=== PATIENT | female | born 1970 | race Caucasian/White ===

== ENCOUNTER 2024-12-14 13:09 | Day surgery (SDC) | payer OTHER, SELFPAY ==
--- NOTE | 2024-12-14 | PATH_ITS ---
[facility] Accession Number: [id number] No. of containers..01 Tissue . 01 Material submitted: . gastrointestinal site - ANTRUM . 01 Clinical history: . ABNORMALITY PT HX OF FAMILY STOMACH CANCER . 01 Diagnosis: GASTRIC ANTRUM, BIOPSY: Gastric antral and body mucosa with mild features of reactive gastropathy. Negative for Helicobacter organisms by immunohistochemistry. Negative for intestinal metaplasia. Negative for dysplasia or malignancy. [facility] 12/25/2024 1533 Local . 01 Electronically signed: . Reza Patton MD, PhD, Pathologist NPI- [id number] . 01 Gross description: . Received in formalin with two identifiers and biopsy stomach antrum, are six soft perez tissue fragments ranging from 0.2 to 0.4 cm in greatest dimension. Entirely submitted in cassette A1. (AER:[id number]) /DORIS 12/22/2024 0121 Local . 01 Microscopic: . A. An immunohistochemical stain was performed to evaluate for Helicobacter organisms and is negative. The control stain showed appropriate reactivity. . * This test was developed and the performance characteristics were validated by [facility]. It has not been cleared or approved by the [place]. Food and Drug Administration. . 01 Pathologist provided ICD-10: K29.60 . 01 CPT . 903842, R94205 Specimen Comment: A courtesy copy of this report has been sent to [phone] Performed at: [address] [address], [place], [place] [id number] MD Aydin Dick MD Phone: [phone]
--- NOTE | 2024-12-14 12:32 | P.HP_ITS ---
History of Present Illness History of Present Illness Date Patient Seen: 12/14/24 Chief complaint: EGD & Colonoscopy w/poss bx's Meds Home Medications and Allergies Allergies Allergy/AdvReac Type Severity Reaction Status Date / Time No Known Drug Allergies Allergy Unverified 11/19/24 10:55 Assessment & Plan Assessment & Plan narrative: Personal history of stomach cancer in her father and her own personal history of his colon polyps. Risks, benefits, alternatives have been explained. Time-Based Coding :: [TOTAL MINUTES] spent with patient and on the chart (including review of chart, obtaining history, exam, reviewing outside data, placing orders, documenting exam and treatment plan, and counseling patient) on [DATE]. [employer] Document charge(s): No
--- NOTE | 2024-12-14 12:35 | PM.OP.EC ---
Operative Date/Time/Diagnoses Date of procedure: 12/14/24 Time of procedure: 15:44 Pre-op diagnosis: See indication and findings Post-op diagnosis: same Procedure & Clinicians Study performed: EGD and colonoscopy Same procedure(s) as scheduled: Yes Indications: Family history of stomach cancer in her father and personal history of colon polyps Surgeon: Maurilio Hua Anesthesia Type: Other Procedure Notes Procedure in detail: After informed consent was obtained the patient was placed in left lateral decubitus position. The video upper scope was placed into the oropharynx and with the patient's help swallowed in the esophagus. The esophagus stomach and duodenal were carefully examined. On withdrawal, retroflexed view the GE junction was performed. The scope was removed. The patient tolerated procedure well. The patient was then turned to the colonoscope substituted. This introduced the rectum slowly advanced cecum. Preparation was good. On slow withdrawal mucosa was carefully examined. The scope was removed. The patient tolerated procedure well. Blood loss none Complications none Sedation mac Findings EGD 1. Normal esophagus 2. Normal proximal stomach 3. Evidence of superficial erosive disease in a patch measuring 5 x 6 cm on the greater curvature/antrum. Several biopsies were taken 4. Normal duodenal bulb and sweep Colonoscopy 1. Normal colonoscopy to cecum Patient should have follow-up EGD possibly 3 years. We will have to await biopsies of this abnormal area to see whether or not he needs further investigation Follow-up colonoscopy in 5 years
[2024-12-14 14:03] VITALS: BP 126/71; PULSE 74; RESP 16; TEMP 36.7; O2SAT 100
[2024-12-14] MEDS: LACTATED RINGERS 1,000 ML 42 ML IV (14:15)
[2024-12-14 15:43] VITALS: BP 120/66; PULSE 56; RESP 16; TEMP 37; O2SAT 98
[2024-12-14 15:48] VITALS: BP 122/77; PULSE 78; RESP 16; O2SAT 98
[2024-12-14 15:53] VITALS: BP 120/70; PULSE 57; RESP 16; TEMP 36.2; O2SAT 98
[2024-12-14 16:09] VITALS: BP 115/68; PULSE 78; RESP 16; TEMP 36.2; O2SAT 98
== END 2024-12-14 16:15 | disposition home or self-care (01) ==
PROVIDERS: PCP Physician Assistant; Referring Provider Physician Assistant; Visit Provider Internal Medicine Gastroenterology
PROC: 0DJ08ZZ Inspection of Upper Intestinal Tract, Via Natural or Artificial Opening Endoscopic (ICD-10-PCS; CPT 43239; principal; 2024-12-14 14:45)
PROC: 0DJD8ZZ Inspection of Lower Intestinal Tract, Via Natural or Artificial Opening Endoscopic (ICD-10-PCS; CPT 45378; 2024-12-14 14:45)
DX: Z12.11 Encounter for screening for malignant neoplasm of colon (principal); Z86.0100 Personal history of colon polyps, unspecified; Z80.0 Family history of malignant neoplasm of digestive organs; K31.9 Disease of stomach and duodenum, unspecified
CPT/HCPCS: 43239; 45378; J2704